=== PATIENT | male | born 2000 | race American Indian/Alaskan Native ===

== ENCOUNTER 2021-02-13 20:48 | Emergency (ER) | payer SELFPAY ==
[2021-02-13 21:24] VITALS: BP 127/79
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
== END 2021-02-14 02:30 | disposition home or self-care (01) ==
LOC: ED 20:48
DX: S39.012A Strain of muscle, fascia and tendon of lower back, initial encounter (principal); M62.830 Muscle spasm of back; V89.2XXA Person injured in unspecified motor-vehicle accident, traffic, initial encounter; Y93.89 Activity, other specified; Y92.488 Other paved roadways as the place of occurrence of the external cause; Y99.8 Other external cause status
CPT/HCPCS: 99282